=== PATIENT | male | born 1970 | race African-American/Black ===

== ENCOUNTER 2017-11-29 09:09 | Emergency (ER) | payer SELFPAY ==
[~2017-11-29] VITALS: Ht 180.3 cm; Wt 90.0 kg
[2017-11-29 09:15] VITALS: BP 152/70; PULSE 68; RESP 16; TEMP 98.9; O2SAT 96
[2017-11-29] MEDS ORDERED: IBUPROFEN 800 MG TAB PO ONE (09:45)
[2017-11-29] MEDS ORDERED: IBUP1TAB7 PO (09:55)
--- NOTE | 2017-11-29 09:55 | PD ---
HPI Chief Complaint: Musculoskeletal Complaint Time Seen by Provider: 09:30 Travel History International Travel<30 days: No Contact w/Intl Traveler<30days: No Traveled to known affect area: No History of Present Illness HPI 47-year-old male presents to the emergency department with complaint of right wrist pain 3 days after tripping and injuring his wrist. Pain is to the radial aspect. Denies paresthesias, loss of sensation to the affected extremity. Rates pain 10/10. Aggravated with movement. Better at rest. Described as throbbing. Has tried ice and icy hot for symptom management. History of asthma. No known allergies. No primary care provider. Has no other medical complaints. No other modifying factors or associated signs and symptoms. PFSH Social History Tobacco Use: No Allergies-Medications (Allergen,Severity, Reaction): Coded Allergies: No Known Allergies (Unverified , 11/29/17) Reported Meds & Prescriptions Reported Meds & Active Scripts Active Ibuprofen 800 Mg Tab 800 Mg PO Q6HR PRN Review of Systems Except as stated in HPI: all other systems reviewed are Neg Physical Exam Narrative GENERAL: Well-nourished, well-developed black male patient, in no acute distress SKIN: Warm and dry. HEAD: Atraumatic. Normocephalic. EYES: Pupils equal and round. No scleral icterus. No injection or drainage. ENT: Mucosa pink and moist. Airway patent. NECK: Trachea midline. CARDIOVASCULAR: Regular rate. RESPIRATORY: No accessory muscle use. GASTROINTESTINAL: Flat. MUSCULOSKELETAL: Right wrist with tenderness on palpation to the radial aspect; no erythema or ecchymosis; mild edema. Right hand with full range of motion at all joints. Right upper extremity is supple and non-tense with 2+ radial pulse and sensory intact. No obvious deformities. No clubbing. No cyanosis. NEUROLOGICAL: Awake and alert. Oriented 3. No obvious cranial nerve deficits. Motor grossly within normal limits. Normal speech. PSYCHIATRIC: Appropriate mood and affect; insight and judgment normal. Data Data Last Documented VS Vital Signs Date Time Temp Pulse Resp B/P (MAP) Pulse Ox O2 Delivery O2 Flow Rate FiO2 11/29/17 09:15 98.9 68 16 152/70 (97) 96 Orders Orders Ibuprofen (Motrin) (11/29/17 09:45) Wrist, Complete ([id number]) (11/29/17 09:37) [facility] Medical Decision Making Medical Screen Exam Complete: Yes Emergency Medical Condition: Yes Medical Record Reviewed: Yes Differential Diagnosis Sprain, fracture, injury Narrative Course 47-year-old male with right wrist injury. Ibuprofen administered in the ER. Right wrist x-ray ordered. 1024: Right wrist x-ray concluded: Wrist X-Ray 11/29/17 0937 Signed Impressions: CONCLUSION: No evidence of recent bony injury. Discussed x-ray findings with the patient. Velcro wrist splint provided for support. Instructed patient to follow-up if symptoms persist greater than 7-10 days. Instructed patient to follow up with primary care provider. Patient verbalizes understanding and agreement with treatment plan. Patient is medically cleared and stable for discharge. Discussed reasons to return to the emergency department. Patient agrees with treatment plan. The patients vital signs are stable and the patient is stable for outpatient follow-up and treatment. Patient discharged home, stable and in no acute distress. Diagnosis Primary Impression: Right wrist sprain Qualified Codes: S63.501A - Unspecified sprain of right wrist, initial encounter Referrals: [facility] Primary Care Physician Patient Instructions: General Instructions, Wrist Sprain (ED) Additional Instructions: Tylenol or ibuprofen as directed and as needed to reduce pain Rest, ice, compress, and elevate extremity to decrease pain and inflammation Kalyan wrap for support Wrist Splint for support Avoid aggravating activity; increase activity as tolerated Follow-up with primary care provider Return to the emergency department immediately with worsening symptoms Med/Other Pt SpecificInfo: Prescription(s) given Scripts Ibuprofen (Ibuprofen) 800 Mg Tab 800 MG PO Q6HR Y for PAIN, #20 TAB 0 Refills Prov: Chani Lord 11/29/17 Disposition: 01 DISCHARGE HOME Condition: Stable Chani Lord Nov 29, 2017 09:55
--- NOTE | 2017-11-29 10:15 | RADRPT ---
EXAM DATE: 11/29/2017 10:01 AM EDT AGE/SEX: 47 years / Male INDICATIONS: Right wrist pain, fall. CLINICAL DATA: This is the patient's initial encounter. Patient reports that signs and symptoms have been present for 3 days and indicates a pain score of 8/10. MEDICAL/SURGICAL HISTORY: None. None. COMPARISON: No prior exams available for comparison. FINDINGS: Bony structures are intact and in normal alignment. Joints are intact without dislocation or signifi cant arthropathy. Osseous density is normal. Soft tissues are unremarkable. No radiopaque foreign bodies seen. CONCLUSION: No evidence of recent bony injury. Electronically signed by: Jose Sommer MD 11/29/2017 10:14 AM EDT
== END 2017-11-29 10:40 | disposition home or self-care (01) ==
LOC: NEPK 09:09
DX: S63.501A Unspecified sprain of right wrist, initial encounter (principal); W01.0XXA Fall on same level from slipping, tripping and stumbling without subsequent striking against object, initial encounter
CPT/HCPCS: 73110; 99283; L3908

== ENCOUNTER 2017-12-06 15:06 | Emergency (ER) | payer SELFPAY ==
[~2017-12-06] VITALS: Ht 180.3 cm; Wt 90.0 kg
[~2017-12-06 15:06] MED LIST: IBUP1TAB7 PO
[2017-12-06 15:38] VITALS: BP 142/68; PULSE 58; RESP 16; TEMP 97.7; O2SAT 98
--- NOTE | 2017-12-06 17:12 | PD ---
HPI Chief Complaint: Complaint Time Seen by Provider: 16:48 Travel History International Travel<30 days: No Contact w/Intl Traveler<30days: No Traveled to known affect area: No History of Present Illness HPI 47-year-old male presents to the emergency room for evaluation of white, milky penile discharge from his penis for the past several days to weeks. Patient had unprotected sex with a new partner a few weeks ago. Symptoms started shortly afterward. He has history of gonorrhea many years ago but does not remember symptoms. He has not taken anything or done anything for symptoms. States he notices it is the worst when he is straining to have a bowel movement. He denies dysuria, urgency, frequency, hematuria, flank pain, fever, chills, nausea, vomiting, abdominal pain, penile pain, or testicular pain. History Social History Alcohol Use: Yes (RARE) Tobacco Use: No Allergies-Medications (Allergen,Severity, Reaction): Coded Allergies: No Known Allergies (Unverified , 11/29/17) Reported Meds & Prescriptions Reported Meds & Active Scripts Active Review of Systems Except as stated in HPI: all other systems reviewed are Neg Physical Exam Narrative GENERAL: Well-nourished, well-developed male in no acute distress. Afebrile. Ambulatory. SKIN: Focused skin assessment warm/dry. HEAD: Normocephalic. EYES: No scleral icterus. No injection or drainage. NECK: Supple, trachea midline. No JVD or lymphadenopathy. CARDIOVASCULAR: Regular rate and rhythm without murmurs, gallops, or rubs. RESPIRATORY: Breath sounds equal bilaterally. No accessory muscle use. BACK: Nontender without obvious deformity. No CVA tenderness. Data Data Last Documented VS Vital Signs Date Time Temp Pulse Resp B/P (MAP) Pulse Ox O2 Delivery O2 Flow Rate FiO2 12/06/17 15:38 97.7 58 16 142/68 (92) 98 MDM Medical Screen Exam Complete: Yes Emergency Medical Condition: No Differential Diagnosis STD Narrative Course 47-year-old male presents to the emergency room for evaluation of white, milky penile discharge that started a few days after he had unprotected sex with a new partner. Worsened when he is straining to have a bowel movement. Denies fever, testicular pain, dysuria, urgency, frequency, hematuria. No flank pain. Vital signs stable. No urgent or emergent medical conditions at this time. A medical screening exam was performed: At the time of evaluation the presenting medical condition was determined not to be of an emergent nature. The patient was given the option of receiving additional care, but declined. Patient was given options for additional community resources from which to obtain care. The Patient Has Been advised to seek medical attention for their presenting complaint. The patient has been advised to return to the ER at any time if an emergent condition develops. Primary Impression: Encounter for medical screening examination Disposition: 01 DISCHARGE HOME Condition: Stable Shirley Gomez Dec 06, 2017 17:12
== END 2017-12-06 17:10 | disposition left against medical advice (07) ==
LOC: NEPK 15:06
DX: R36.9 Urethral discharge, unspecified (principal)
CPT/HCPCS: 99281